=== PATIENT | female | born 1970 | race Caucasian/White ===

== ENCOUNTER 2016-07-08 17:46 | Emergency (ER) | payer MEDICARE ==
--- NOTE | 2016-07-16 09:05 | ER ---
ADMIT: 07/08/2016 RM/LOC: ER [facility] MR#: [id number] [address] [facility] [address] [place] [id number] [place] [address] Emergency Room Report SEX: F AGE: 45 : 1970 DATE: 07/08/2016 HISTORY OF PRESENT ILLNESS: The patient brought in here for medical clearance. Apparently was on the way over to [facility] from [facility] after she received her Keppra and her Ativan, got pretty anxious, and they stopped here for a clearance to make sure that she is okay. Vitals; blood pressure 136/95 with a pulse of 84, respirations 14, temp is 98.9, O2 sats 94%. She tells me that she has been drinking, she does not want to do this anymore, she is on her way to get some help. She drinks a pint of vodka a day, and she is a smoker, 1 pack a day. She also had left eye contusion last week. She says she fell. She is able to see out of the eye fine. She also complained of left neck pain from a fall that she sustained a week ago, that she says still has some muscle tightness. PAST MEDICAL HISTORY: Kidney stones, anxiety, PTSD, COPD, enlarged heart. She had had pyelo. She had had appendectomy, hysterectomy, gallbladder. PHYSICAL EXAMINATION: On examination is slightly intoxicated female on the way over to [facility] for mental health evaluation and care. LABORATORY DATA: No labs were done at this time. DISPOSITION: She was cleared for transportation to [facility]. ELISHA Argueta / Jimenez Zuniga MD / calvin JOB #: [id number] CC: Jimenez Zuniga MD, Attending Physician
== END 2016-07-08 18:14 | disposition home or self-care (01) ==
LOC: ER 17:46
DX: F41.0 Panic disorder [episodic paroxysmal anxiety] (principal); F10.129 Alcohol abuse with intoxication, unspecified; F32.9 Major depressive disorder, single episode, unspecified; J44.9 Chronic obstructive pulmonary disease, unspecified; Z90.49 Acquired absence of other specified parts of digestive tract; Z90.710 Acquired absence of both cervix and uterus; Z88.8 Allergy status to other drugs, medicaments and biological substances

== ENCOUNTER 2016-07-21 12:11 | Emergency (ER) | payer MEDICARE ==
--- NOTE | 2016-07-27 23:34 | ER ---
ADMIT: 07/21/2016 RM/LOC: ER [facility] MR#: [id number] [address] [facility] [address] [place] [id number] [place] [address] Emergency Room Report SEX: F AGE: 45 : 1970 DATE: 07/21/2016 Please refer to my T-sheet for complete H and P. Briefly, the patient is a 45-year-old comes in with shaking episode while at rehab. She has a longstanding complex history of epilepsy. She also has depression, anxiety, PTSD, alcohol abuse. She has been clean for about 2 weeks. Apparently, was at detox, had a shaking episode. Did not bite her tongue or lose bladder control. She thinks she had a breakthrough seizure. PHYSICAL EXAMINATION: VITAL SIGNS: Here are stable. HEENT: Grossly normal. LUNGS: Clear. HEART: Regular. ABDOMEN: Soft. SKIN: No rash. NEUROLOGIC: Alert and oriented. Nonfocal. EMERGENCY DEPARTMENT COURSE: CBC normal. Chemistries normal except potassium 3.2. I gave her Ativan 1 mg p.o. she looked well. She said she did not want to change anything. She is on max dose of Keppra at this time. I did review her labs and medications with her and allowed her to be discharged. ASSESSMENT: Seizure with a history of epilepsy. PLAN: Continue care. Follow up with her primary doctor this week. Return if worse and follow up with Neurology. Jimenez Zuniga MD/ calvin JOB #: [id number] CC: Jimenez Zuniga MD, Attending Physician
== END 2016-07-21 14:00 | disposition home or self-care (01) ==
LOC: ER 12:11
DX: G40.909 Epilepsy, unspecified, not intractable, without status epilepticus (principal); F17.210 Nicotine dependence, cigarettes, uncomplicated